=== PATIENT | male | born 1985 | race African-American/Black ===

== ENCOUNTER 2019-07-05 15:33 | Outpatient (CLI) | payer OTHER, SELFPAY ==
[2019-07-05 16:02] LABS: Basophils Percent Auto 0.5 % (0.2-1.2); Eosinophils Percent Auto 0.9 % (0-4.4); Hematocrit 43.8 % (42.0-52.0); Hemoglobin 14.6 g/dL (14.0-18.0); Immature Granulocyte Absolute 0.01 K/mm3 (0.00-0.031); Immature Granulocyte Percent A 0.2 % (0-0.5); Lymphocytes Absolute Auto 1.29 K/mm3 (0.9-3.2); Lymphocytes Percent Auto 29.1 % (18.3-44.2); Mean Corpuscular HGB Conc 33.3 g/dl (32-36); Mean Corpuscular Hemoglobin 26.7 pg (26-34); Mean Corpuscular Volume 80.1 fl (80-100); Mean Platelet Volume 9.3 fl (7.4-10.4); Monocytes Absolute Auto 0.5 K/mm3 (0.1-0.6); Monocytes Percent Auto 11.9 % (2.6-8.5); Neutrophils Absolute Auto 2.6 K/mm3 (1.3-6.7); Neutrophils Percent Auto 57.4 % (45.5-73.1); Platelet Count Result 218 k/mm3 (150-375); Red Blood Count 5.47 M/mm3 (4.6-6.20); Red Cell Distribution Width 12.7 % (11.5-14.5); White Blood Count 4.4 K/mm3 (4.5-10.0)
[2019-07-05 16:53] LABS: Iron 96 ug/dL (49-181)
[2019-07-05 16:57] LABS: Alanine Aminotransferase 58 U/L (4-50); Albumin Level 4.7 g/dL (3.5-5.1); Alkaline Phosphatase 54 U/L (38-126); Aspartate Amino Transferase 35 U/L (17-59); Bilirubin,Total 0.7 mg/dL (0.2-1.3); Blood Urea Nitrogen 15 mg/dL (9-20); Calcium 9.4 mg/dL (8.4-10.2); Carbon Dioxide 25 mmol/L (22-30); Chloride 104 mmol/L (98-107); Estimated Glomerular Filt Rate > 60; Glucose 74 mg/dL (75-110); Potassium 4.7 mmol/L (3.4-5.0); Sodium 138 mmol/L (137-145)
[2019-07-05 17:02] LABS: Percent Iron Saturation 33 % (20-50)
== END 2019-07-05 15:34 | disposition home or self-care (01) ==
PROVIDERS: PCP Emergency Medicine; Visit Provider Internal Medicine Hematology & Oncology
DX: D72.819 Decreased white blood cell count, unspecified (principal)
CPT/HCPCS: 36415; 80053; 82607; 82728; 83540; 83550; 85025; 86038

== ENCOUNTER 2019-07-09 08:44 | Outpatient (CLI) | payer OTHER, SELFPAY ==
--- NOTE | ~2019-07-09 | US_ITS ---
EXAMINATION: US abdomen complete DATE: 07/09/2019 09:18 INDICATION: Leukopenia TECHNIQUE: Multiple grayscale and Doppler ultrasound images of the abdomen were obtained. COMPARISON: None available FINDINGS: The head and and body of the pancreas are normal. The pancreatic tail is obscured by bowel gas. The liver is normal with normal echogenicity and echotexture. No surface nodularity. Normal hepa topetal flow in the main portal vein. The gallbladder is normal with no abnormal wall thickening, per icholecystic fluid or stones. The normal common bile duct measures 3 mm. There was no sonographic Mur phy sign. The visualized portions of the aorta and inferior vena cava are normal. The right kidney measures 10.9 x 4.5 x 5.3 cm. The left kidney measures 10.3 x 7.1 x 5.4 cm. The kidn eys demonstrate normal parenchymal echogenicity. There is no hydronephrosis. The spleen is normal in appearance and measures 10.6 cm. IMPRESSION: 1. No sonographic correlate for the patient's symptoms. Reviewed, dictated and finalized at location A.
== END 2019-07-09 08:45 | disposition home or self-care (01) ==
LOC: ANHIMG 08:47
PROVIDERS: PCP Emergency Medicine; Visit Provider Internal Medicine Hematology & Oncology
DX: D72.819 Decreased white blood cell count, unspecified (principal)
CPT/HCPCS: 76700

== ENCOUNTER → 2019-09-10 14:55 | Outpatient (CLI) | payer OTHER, SELFPAY ==
--- NOTE | ~2019-09-10 | XR_ITS ---
EXAMINATION: XR chest 2V EXAM DATE: 09/10/2019 15:17 INDICATION: Cough. TECHNIQUE: Frontal and lateral projections of the chest obtained and reviewed. There is no prior lucila dy for comparison. FINDINGS: The lungs are clear. There are no pleural effusions. The cardiomediastinal silhouette is within normal limits. There is no pneumothorax suspected. The bones and soft tissues are unremarkab le. IMPRESSION: Normal chest x-ray exam. Reviewed, dictated and finalized at location A. IMPRESSION: Normal chest x-ray exam.
== END ==
PROVIDERS: PCP Emergency Medicine; Visit Provider Emergency Medicine
DX: R05 Cough (principal)
CPT/HCPCS: 71046

== ENCOUNTER 2020-01-23 13:20 | Outpatient (CLI) | payer OTHER, SELFPAY ==
[2020-01-23 13:51] LABS: Basophils Percent Auto 0.5 % (0.2-1.2); Hematocrit 43.7 % (42.0-52.0); Hemoglobin 14.6 g/dL (14.0-18.0); Immature Granulocyte Absolute 0.02 K/mm3 (0.00-0.031); Immature Granulocyte Percent A 0.5 % (0-0.5); Lymphocytes Absolute Auto 1.13 K/mm3 (0.9-3.2); Lymphocytes Percent Auto 29.5 % (18.3-44.2); Mean Corpuscular HGB Conc 33.4 g/dl (32-36); Mean Corpuscular Volume 80.8 fl (80-100); Mean Platelet Volume 9.2 fl (7.4-10.4); Monocytes Absolute Auto 0.4 K/mm3 (0.1-0.6); Monocytes Percent Auto 9.9 % (2.6-8.5); Neutrophils Absolute Auto 2.2 K/mm3 (1.3-6.7); Neutrophils Percent Auto 58.6 % (45.5-73.1); Platelet Count Result 221 k/mm3 (150-375); Red Blood Count 5.41 M/mm3 (4.6-6.20); Red Cell Distribution Width 13.1 % (11.5-14.5); White Blood Count 3.8 K/mm3 (4.5-10.0)
[2020-01-23 13:55] LABS: Blood Urea Nitrogen 17 mg/dL (8-26); Carbon Dioxide 32 mmol/L (22-30); Chloride 100 mmol/L (98-109); Estimated Glomerular Filt Rate > 60; Glucose 94 mg/dL (70-105); Sodium 140 mmol/L (138-146)
[2020-01-23 17:00] LABS: Alanine Aminotransferase 46 U/L (4-50); Albumin Level 4.4 g/dL (3.5-5.1); Alkaline Phosphatase 57 U/L (38-126); Anion Gap 8 mmol/L (8-16); Aspartate Amino Transferase 33 U/L (17-59); Bilirubin,Total 0.7 mg/dL (0.2-1.3); Blood Urea Nitrogen 17 mg/dL (9-20); Calcium 9.9 mg/dL (8.4-10.2); Carbon Dioxide 31 mmol/L (22-30); Chloride 100 mmol/L (98-107); Estimated Glomerular Filt Rate > 60; Glucose 93 mg/dL (75-110); Potassium 4.2 mmol/L (3.4-5.0); Sodium 139 mmol/L (137-145)
== END 2020-01-23 13:21 | disposition home or self-care (01) ==
PROVIDERS: PCP Emergency Medicine; Visit Provider Internal Medicine Hematology & Oncology
DX: D72.819 Decreased white blood cell count, unspecified (principal)
CPT/HCPCS: 36415; 80048; 80053; 85025

== ENCOUNTER 2020-07-23 14:06 | Outpatient (CLI) | payer OTHER, SELFPAY ==
[2020-07-23 14:39] LABS: Basophils Percent Auto 0.7 % (0.2-1.2); Eosinophils Percent Auto 1.3 % (0-4.4); Hematocrit 44.2 % (42.0-52.0); Hemoglobin 14.9 g/dL (14.0-18.0); Immature Granulocyte Absolute 0.01 K/mm3 (0.00-0.031); Immature Granulocyte Percent A 0.3 % (0-0.5); Lymphocytes Absolute Auto 1.14 K/mm3 (0.9-3.2); Lymphocytes Percent Auto 37.7 % (18.3-44.2); Mean Corpuscular HGB Conc 33.7 g/dl (32-36); Mean Corpuscular Hemoglobin 26.8 pg (26-34); Mean Corpuscular Volume 79.4 fl (80-100); Monocytes Absolute Auto 0.3 K/mm3 (0.1-0.6); Monocytes Percent Auto 8.6 % (2.6-8.5); Neutrophils Absolute Auto 1.6 K/mm3 (1.3-6.7); Neutrophils Percent Auto 51.4 % (45.5-73.1); Platelet Count Result 206 k/mm3 (150-375); Red Blood Count 5.57 M/mm3 (4.6-6.20); Red Cell Distribution Width 12.4 % (11.5-14.5)
[2020-07-23 14:43] LABS: Blood Urea Nitrogen 18 mg/dL (8-26); Carbon Dioxide 26 mmol/L (22-30); Chloride 101 mmol/L (98-109); Estimated Glomerular Filt Rate > 60; Glucose 114 mg/dL (70-105); Potassium 4.2 mmol/L (3.5-4.9); Sodium 140 mmol/L (138-146)
[2020-07-23 14:44] LABS: Atypical Lymphocytes Present; Platelet Estimate Adequate (Adequate)
[2020-07-23 17:25] LABS: Alanine Aminotransferase 43 U/L (4-50); Albumin Level 4.6 g/dL (3.5-5.1); Alkaline Phosphatase 55 U/L (38-126); Anion Gap 10 mmol/L (8-16); Aspartate Amino Transferase 32 U/L (17-59); Bilirubin,Total 0.5 mg/dL (0.2-1.3); Blood Urea Nitrogen 17 mg/dL (9-20); Calcium 9.6 mg/dL (8.4-10.2); Carbon Dioxide 25 mmol/L (22-30); Chloride 104 mmol/L (98-107); Estimated Glomerular Filt Rate > 60; Glucose 109 mg/dL (75-110); Potassium 4.6 mmol/L (3.4-5.0); Sodium 139 mmol/L (137-145)
== END 2020-07-23 14:07 | disposition home or self-care (01) ==
LOC: ANHLAB 14:29
PROVIDERS: PCP Emergency Medicine; Visit Provider Internal Medicine Hematology & Oncology
DX: D72.819 Decreased white blood cell count, unspecified (principal)
CPT/HCPCS: 36415; 80048; 80053; 85025

== ENCOUNTER 2020-07-24 10:13 | Emergency (ER) | payer OTHER, SELFPAY ==
[2020-07-24] VITALS (16 sets, daily range): BP systolic 117–157; BP diastolic 62–109; PULSE 58–78; RESP 12–30; TEMP 36.6; O2SAT 98–100
--- NOTE | ~2020-07-24 | XR_ITS ---
EXAMINATION: XR chest 2V DATE: 07/24/2020 11:49 INDICATION: Lightheadedness TECHNIQUE: PA and lateral views of the chest were obtained. COMPARISON: Chest radiograph dated 09/10/2019 FINDINGS: The lungs remain clear with no focal airspace opacities, pulmonary edema, pleural effusion or pneumot horax. The cardiomediastinal silhouette is normal. Visualized bones and soft tissues are unremarkable . IMPRESSION: 1. No acute cardiopulmonary disease. Reviewed, dictated and finalized at location A.
--- NOTE | 2020-07-24 10:27 | ECG_ITS ---
Measurements Intervals [employer] Rate: 76 P: 73 PA: 174 QRS: 64 QRSD: 94 T: 36 QT: 339 QTc: 383 Interpretive Statements SINUS RHYTHM POSSIBLE LEFT ATRIAL ENLARGEMENT BORDERLINE ECG Electronically Signed On 07-24-2020 15:53:34 CDT by Bean Ramirez D.O.
[2020-07-24 11:10] LABS: Basophils Percent Auto 0.4 % (0.2-1.2); Eosinophils Percent Auto 0.7 % (0-4.4); Hematocrit 45.9 % (42.0-52.0); Hemoglobin 15.6 g/dL (14.0-18.0); Immature Granulocyte Absolute 0.01 K/mm3 (0.00-0.031); Immature Granulocyte Percent A 0.4 % (0-0.5); Lymphocytes Absolute Auto 0.83 K/mm3 (0.9-3.2); Lymphocytes Percent Auto 29.4 % (18.3-44.2); Mean Corpuscular Volume 79.4 fl (80-100); Mean Platelet Volume 9.2 fl (7.4-10.4); Monocytes Absolute Auto 0.3 K/mm3 (0.1-0.6); Neutrophils Absolute Auto 1.6 K/mm3 (1.3-6.7); Neutrophils Percent Auto 58.1 % (45.5-73.1); Platelet Count Result 201 k/mm3 (150-375); Red Blood Count 5.78 M/mm3 (4.6-6.20); Red Cell Distribution Width 12.6 % (11.5-14.5); White Blood Count 2.8 K/mm3 (4.5-10.0)
[2020-07-24 11:18] LABS: Anion Gap 7 mmol/L (8-16); Blood Urea Nitrogen 15 mg/dL (9-20); Calcium 9.4 mg/dL (8.4-10.2); Carbon Dioxide 31 mmol/L (22-30); Chloride 103 mmol/L (98-107); Estimated CRCL calculation 100 ml/min; Estimated Glomerular Filt Rate > 60; Glucose 104 mg/dL (75-110); Potassium 4.3 mmol/L (3.4-5.0); Sodium 141 mmol/L (137-145)
[2020-07-24 11:25] LABS: Partial Thromboplastin Time 26.3 SECONDS (22.3-36.8); Prothrombin Time 13.3 Seconds (11.1-14.7)
[2020-07-24 11:30] LABS: Troponin I < 0.012 ng/mL (0.000-0.034)
--- NOTE | 2020-07-24 12:38 | ED.DIZZY ---
HPI - Dizziness General Chief Complaint: Dizziness Stated Complaint: lightheaded Time Seen by Provider: 07/24/20 12:22 Source: patient and family Mode of arrival: ambulatory Limitations: no limitations History of Present Illness HPI Narrative: Patient is a 35-year-old male healthy male who presents for evaluation of palpitations and intermittent dizziness. Patient states he has had these symptoms over the past 48 hours. They seem to come and go randomly, no specific pattern to the onset. Patient states he was having palpitations earlier this morning while he was at work. 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 He was doing some heavy lifting when this occurred. No significant diaphoresis or chest pain. He reports only palpitations and a feeling of lightheadedness. No jaw pain, neck pain or back pain. Patient denies any current symptoms in the room. He states he is not currently dizzy. He states that the dizziness is noticed, it lasts only for a few for short seconds before resolving on its own. Movement does seem to make the dizziness worse. No nausea or vomiting. No focal weakness or numbness. No headache or vision changes. Related Data Home Medications Medication Instructions Recorded Confirmed amlodipine 07/24/20 amlodipine 07/24/20 simvastatin mg 07/24/20 Allergies Allergy/AdvReac Type Severity Reaction Status Date / Time No Known Allergies Allergy Verified 07/24/20 11:48 Review of Systems Review of Systems: Narrative: CONSTITUTIONAL: Denies fever, chills, or sweats. EYES: Denies visual changes, redness, or discharge. ENT: Denies rhinorrhea, congestion, sore throat, or otalgia. CARDIOVASCULAR: Denies current chest pain, palpitations, or edema. RESPIRATORY: Denies cough or dyspnea. GASTROINTESTINAL: Denies abdominal pain, nausea, vomiting, or diarrhea. GENITOURINARY: Denies dysuria or hematuria. SKIN: Denies rash or itching. MUSCULOSKELETAL: Denies back pain, joint pain, or myalgia. NEUROLOGIC: Denies headache, numbness, or weakness. Reports intermittent dizziness. Denies dizziness currently. [facility] Social History Social History (Updated 07/24/20 @ 13:46 by Caryn Chao MD) Smoking status: Never smoker Alcohol intake: never Substance use: never Living arrangements: with family Gender identity (if verbalized by the patient): Male Exam Narrative: Exam Narrative: GENERAL: Awake, alert, conversant HEAD: Normocephalic, atraumatic. EYES: PERRLA and EOMI. ENT: Nares clear, no rhinorrhea or epistaxis. Mucous membranes moist. Right tympanic membrane cannot be visualized secondary to cerumen occlusion. No impaction. Left tympanic membrane cerumen present, no edema, erythema or bulging of the tympanic membrane. NECK: Supple. CHEST: No respiratory distress, breathing even and non labored HEART: Regular rate, sinus rhythm ABDOMEN:Non distended, non tender EXTREMITIES: Normal range of motion. No edema. SKIN: Warm, dry, no rash. NEURO:No focal deficits. Alert and oriented x3. Finger to nose intact bilaterally. EOMs intact without nystagmus. No facial droop/asymmetry noted bilaterally. Grimace intact. Intact sensation in face. Hearing intact bilaterally. Shoulder shrug intact. Strength 5/5 bilateral upper extremities. Strength 5/5 bilateral lower extremities. Reflexes 2+ patellar. Heel to benavides intact bilaterally. Ambulatory with a narrow base, steady gait, no ataxia. Course Vital Signs Vital signs: Vital Signs Temperature 36.6 C 07/24/20 10:24 Pulse Rate 77 07/24/20 10:24 Respiratory Rate 18 07/24/20 10:24 Blood Pressure 148/97 H 07/24/20 10:24 Pulse Oximetry 99 07/24/20 10:24 Temperature 36.6 C 07/24/20 10:24 Pulse Rate 58 L 07/24/20 14:30 Respiratory Rate 19 07/24/20 14:30 Blood Pressure 120/67 07/24/20 14:30 Pulse Oximetry 99 07/24/20 14:30 MDM - Dizziness MDM Narrative Medical decision making narrative: The patient
[2020-07-24] MEDS: MECLIZINE HCL 25 MG TABLET PO (12:58)
[2020-07-24 14:12] LABS: Troponin I < 0.012 ng/mL (0.000-0.034)
== END 2020-07-24 15:01 | disposition home or self-care (01) ==
PROVIDERS: Emergency Provider Emergency Medicine; PCP Emergency Medicine
DX: R00.2 Palpitations (principal); H81.13 Benign paroxysmal vertigo, bilateral; R94.31 Abnormal electrocardiogram [ECG] [EKG]
CPT/HCPCS: 36415; 71046; 80048; 84484; 85025; 85610; 85730; 93005; 99284; A9270

== ENCOUNTER 2020-08-05 21:12 | Emergency (ER) | payer OTHER, SELFPAY ==
--- NOTE | ~2020-08-05 | CT_ITS ---
EXAMINATION: CT brain wo con DATE: 08/05/2020 23:47 INDICATION: Dizziness TECHNIQUE: Computed tomography (CT) of the head was performed without intravenous contrast. The mA wa s adjusted according to patient size. Iterative reconstruction technique was employed. Exam dose: 60 5.33 mGy-cm total exam DLP. COMPARISON: 05/12/2004 CT brain FINDINGS: No intracranial mass lesion or hemorrhage or cerebrovascular accident. No midline shift or mass effect. Normal ventricular size. Normal peck-white matter differentiation. Bilateral carotid siphon internal carotid artery calcifications are noted. Included paranasal sinuses and mastoid air cells are unremarkable. No fracture or bone destruction of the skull. No subdural or epidural hematoma. IMPRESSION: Cerebral atherosclerosis No acute intracranial finding Reviewed, dictated and finalized at Location A. Reviewed, dictated and finalized at location A.
--- NOTE | ~2020-08-05 | XR_ITS ---
XR chest 2V DATE: 08/05/2020 21:46 INDICATION: Chest tightness since yesterday. Nausea. TECHNIQUE: AP and lateral views COMPARISON: 07/24/2020 PA and lateral chest FINDINGS: Normal heart size. No hilar or mediastinal enlargement. No pulmonary infiltrate or consolid ation, pleural effusion or pulmonary vascular congestion or pneumothorax. IMPRESSION: Negative Reviewed, dictated and finalized at location A. IMPRESSION: Negative
[2020-08-05 21:16] VITALS: BP 162/83; PULSE 96; RESP 18; TEMP 37; O2SAT 100
--- NOTE | 2020-08-05 21:24 | ECG_ITS ---
Measurements Intervals [place] Rate: 97 P: 63 IN: 176 QRS: 67 QRSD: 94 T: 11 QT: 319 QTc: 406 Interpretive Statements SINUS RHYTHM POSSIBLE LEFT ATRIAL ENLARGEMENT DELAYED PRECORDIAL R/S TRANSITION BORDERLINE ST-T WAVE ABNORMALITY- INFERIOR LEADS BORDERLINE ECG Electronically Signed On 08-06-2020 5:50:20 CDT by Bean Ramirez D.O.
[2020-08-05 21:41] LABS: Basophils Percent Auto 0.2 % (0.2-1.2); Eosinophils Absolute Auto 0.1 K/mm3 (0-0.3); Eosinophils Percent Auto 1.2 % (0-4.4); Hematocrit 46.7 % (42.0-52.0); Hemoglobin 15.2 g/dL (14.0-18.0); Immature Granulocyte Absolute 0.02 K/mm3 (0.00-0.031); Immature Granulocyte Percent A 0.5 % (0-0.5); Lymphocytes Absolute Auto 1.54 K/mm3 (0.9-3.2); Lymphocytes Percent Auto 37.3 % (18.3-44.2); Mean Corpuscular HGB Conc 32.5 g/dl (32-36); Mean Corpuscular Hemoglobin 26.6 pg (26-34); Mean Corpuscular Volume 81.8 fl (80-100); Mean Platelet Volume 9.1 fl (7.4-10.4); Monocytes Absolute Auto 0.4 K/mm3 (0.1-0.6); Monocytes Percent Auto 9.2 % (2.6-8.5); Neutrophils Absolute Auto 2.1 K/mm3 (1.3-6.7); Neutrophils Percent Auto 51.6 % (45.5-73.1); Platelet Count Result 205 k/mm3 (150-375); Red Blood Count 5.71 M/mm3 (4.6-6.20); Red Cell Distribution Width 12.5 % (11.5-14.5); White Blood Count 4.1 K/mm3 (4.5-10.0)
--- NOTE | 2020-08-05 21:44 | PC.NURSE ---
call brother [phone] shelli
[2020-08-05 21:50] LABS: Prothrombin Time 13.4 Seconds (11.1-14.7)
[2020-08-05 21:51] LABS: Partial Thromboplastin Time 24.3 SECONDS (22.3-36.8)
[2020-08-05 21:53] LABS: Anion Gap 9 mmol/L (8-16); Blood Urea Nitrogen 15 mg/dL (9-20); Calcium 9.5 mg/dL (8.4-10.2); Carbon Dioxide 29 mmol/L (22-30); Chloride 103 mmol/L (98-107); Estimated CRCL calculation 84 ml/min; Estimated Glomerular Filt Rate > 60; Glucose 100 mg/dL (75-110); Potassium 4.3 mmol/L (3.4-5.0); Sodium 141 mmol/L (137-145)
[2020-08-05 22:05] LABS: Troponin I < 0.012 ng/mL (0.000-0.034)
[2020-08-05 22:39] VITALS: BP 130/76; PULSE 73; RESP 16; O2SAT 98
[2020-08-05] MEDS: ASPIRIN 81 MG CHEWABLE TABLET 324 MG PO (22:44)
[2020-08-05 22:53] VITALS: PULSE 71
--- NOTE | 2020-08-05 23:50 | PC.NURSE ---
pt to and from radiology via cart and is now back in room resting on cart in its lowest position with call button and personal items within reach. is present at bedside.
[2020-08-05] MEDS: SODIUM CHLORIDE 0.9% IV 1,000 ML 999 ML IV CONT (23:53)
[2020-08-05] MEDS: MECLIZINE HCL 25 MG TABLET PO (23:53)
--- NOTE | 2020-08-05 23:58 | PC.NURSE ---
Pt presents to ED with complaint of chest tightness that has been persistent since yesterday. Pt states he was seen here last for same. Pain rated 4/10 and sharp at this time. Complains of nausea and denies emesis. Pt noted to be alert and oriented x4 and able to walk into ED without difficulty. Pt adds that he has been experiencing dizziness as well. Pt remains alert and oriented x4 and in no obvious distress. Vitals are stable and pt advised to press call button for assistance.
--- NOTE | 2020-08-06 00:14 | ED.GENADULT ---
HPI - General Adult General Chief complaint: Chest Pain Stated complaint: dizziness, chest pain Time Seen by Provider: 08/05/20 23:09 History of Present Illness HPI narrative: Patient 35-year-old gentleman who presents the emergency department with chief complaint of chest discomfort and dizziness. The patient reports he was seen in the emergency department fairly recently and diagnosed with vertigo. The patient states he seen his primary care physician and has a referral to otolaryngology patient states today he felt lightheaded and felt as though his head was spinning. Patient states this was not improved by anything and just spontaneously improved. Patient states he had some tightness in his chest when this is going on and reports has had some palpitations. The patient denies focal neurological deficit Related Data Home Medications Medication Instructions Recorded Confirmed amlodipine 07/24/20 amlodipine 07/24/20 simvastatin mg 07/24/20 Allergies Allergy/AdvReac Type Severity Reaction Status Date / Time No Known Allergies Allergy Verified 07/24/20 11:48 Review of Systems Review of Systems: Narrative: A 10 system review of systems was completed on the patient and is negative except for what is stated in the HPI. Nursing and ancillary documentation was reviewed. [facility] Social History Social History Smoking status: Never smoker Alcohol intake: never Substance use: never Gender identity (if verbalized by the patient): Male Exam Narrative: Exam Narrative: GENERAL: Well-appearing, well-nourished, and in no acute distress. HEAD: Normocephalic, atraumatic. EYES: PERRLA and EOMI. ENT: Nares clear, no rhinorrhea or epistaxis. Mucous membranes moist. NECK: Supple. CHEST: Clear to auscultation. No respiratory distress. HEART: Regular rate and rhythm. No murmur heard. Normal peripheral pulses. ABDOMEN: Soft, nontender, nondistended, normal active bowel sounds. EXTREMITIES: Normal range of motion. No edema. SKIN: Warm, dry, no rash. NEURO: No focal deficits. Alert and oriented x3. PSYCH: Normal mood and affect. Course Vital Signs Vital signs: Vital Signs Temperature 37.0 C 08/05/20 21:16 Pulse Rate 96 08/05/20 21:16 Respiratory Rate 18 08/05/20 21:16 Blood Pressure 162/83 H 08/05/20 21:16 Pulse Oximetry 100 08/05/20 21:16 Temperature 37.0 C 08/05/20 21:16 Pulse Rate 60 08/06/20 00:35 Respiratory Rate 18 08/06/20 00:35 Blood Pressure 127/77 08/06/20 00:35 Pulse Oximetry 99 08/06/20 00:35 Medical Decision Making Vital Signs Vital Signs: Vital Signs Temperature 37.0 C 08/05/20 21:16 Pulse Rate 96 08/05/20 21:16 Respiratory Rate 18 08/05/20 21:16 Blood Pressure 162/83 H 08/05/20 21:16 Pulse Oximetry 100 08/05/20 21:16 Temperature 37.0 C 08/05/20 21:16 Pulse Rate 60 08/06/20 00:35 Respiratory Rate 18 08/06/20 00:35 Blood Pressure 127/77 08/06/20 00:35 Pulse Oximetry 99 08/06/20 00:35 Lab Data Result diagrams: 08/05/20 21:28 08/05/20 21:28 Labs: Lab Results 08/05/20 08/05/20 08/05/20 Range/Units 21:28 21:28 21:28 WBC 4.1 L (4.5-10.0) K/mm3 RBC 5.71 (4.6-6.20) M/mm3 Hgb 15.2 (14.0-18.0) g/dL Hct 46.7 (42.0-52.0) % MCV 81.8 (80-100) fl MCH 26.6 (26-34) pg MCHC 32.5 (32-36) g/dl RDW 12.5 (11.5-14.5) % Plt Count 205 (150-375) k/mm3 MPV 9.1 (7.4-10.4) fl Immature Gran % (Auto) 0.5 (0-0.5) % Neut % (Auto) 51.6 (45.5-73.1) % Lymph % (Auto) 37.3 (18.3-44.2) % [place] % (Auto) 9.2 H (2.6-8.5) % Eos % (Auto) 1.2 (0-4.4) % Baso % (Auto) 0.2 (0.2-1.2) % Lymph # (Auto) 1.54 (0.9-3.2) K/mm3 [place] # (Auto) 0.4 (0.1-0.6) K/mm3 Eos # (Auto) 0.1 (0-0.3) K/mm3 Baso # (Auto) 0.0 (0.0-0.1) K/mm3 Abs Immat Gran (auto) 0.02 (0.00-0.03
[2020-08-06 00:35] VITALS: BP 127/77; PULSE 60; RESP 18; O2SAT 99
--- NOTE | 2020-08-06 00:37 | PC.NURSE ---
Pt states he feels a little better and dizziness has improved but is still present. Pt denies nausea and emesis. is present at bedside and vitals remain stable and pt in no obvious distress.
--- NOTE | 2020-08-06 01:25 | PC.NURSE ---
Pt ambulated in [place] and walked around the nurses station with standby assist from nurse. Pt tolerated walk well and denies chest pain, sob, nausea and dizziness. Pt now back in room resting on cart in its lowest position with call button and personal items within reach. Advised to press call button for assistance.
[2020-08-06 02:13] LABS: Troponin I < 0.012 ng/mL (0.000-0.034)
--- NOTE | 2020-08-06 02:17 | PC.NURSE ---
EDMD presented to bedside to update pt and on poc. All questions and concerns addressed.
--- NOTE | 2020-08-06 02:51 | PC.NURSE ---
EDMD presented to bedside to update pt and on poc. All questions and concerns addressed.
[2020-08-06 03:01] VITALS: BP 132/75; PULSE 77; RESP 20; TEMP 37.1; O2SAT 97
[2020-08-06 03:03] VITALS: BP 132/75; PULSE 77; RESP 20; TEMP 37.1; O2SAT 97
== END 2020-08-06 03:06 | disposition home or self-care (01) ==
PROVIDERS: Emergency Medicine; Emergency Provider Emergency Medicine; PCP Emergency Medicine
DX: R07.89 Other chest pain (principal); R42 Dizziness and giddiness; R94.31 Abnormal electrocardiogram [ECG] [EKG]
CPT/HCPCS: 36415; 70450; 71046; 80048; 84484; 85025; 85610; 85730; 93005; 96360; 99284; A9270; J7030

== ENCOUNTER 2020-08-26 07:53 | Outpatient (CLI) | payer OTHER, SELFPAY | END 2020-08-26 07:54 | disposition home or self-care (01) | LOC: ANHAUDIO 07:55 | PROVIDERS: PCP Emergency Medicine; Visit Provider Nurse Practitioner Family | DX: H69.93 Unspecified Eustachian tube disorder, bilateral (principal); R42 Dizziness and giddiness; H90.42 Sensorineural hearing loss, unilateral, left ear, with unrestricted hearing on the contralateral side | CPT/HCPCS: 92537; 92540; 92546; 92557; 92567 ==

== ENCOUNTER 2021-07-01 02:59 | Emergency (ER) | payer OTHER, SELFPAY ==
--- NOTE | ~2021-07-01 | XR_ITS ---
EXAMINATION: XR chest 2V DATE: 07/01/2021 03:41 INDICATION: Chest pain TECHNIQUE: PA and lateral views of the chest are obtained. COMPARISON: 08/05/2020 FINDINGS: The lungs are free of acute opacities. There is no pleural effusion or pneumothorax. The ca rdiomediastinal silhouette is normal. The visualized bones and soft tissues are unremarkable. IMPRESSION: 1. No acute cardiopulmonary abnormality. Reviewed, dictated and finalized at location A.
[2021-07-01 03:01] VITALS: BP 153/92; PULSE 67; RESP 16; TEMP 36.7; O2SAT 100
--- NOTE | 2021-07-01 03:11 | ECG_ITS ---
Measurements Intervals [place] Rate: 68 P: 71 DC: 211 QRS: 66 QRSD: 97 T: 35 QT: 364 QTc: 389 Interpretive Statements SINUS RHYTHM WITH SINUS ARRHYTHMIA WITH FIRST DEGREE AV BLOCK POSSIBLE LEFT ATRIAL ENLARGEMENT DELAYED PRECORDIAL R/S TRANSITION NONSPECIFIC ST ELEVATION IN DIFFUSE LEADS BASELINE ARTIFACT- I, II, AVR, AVL, V1 ABNORMAL ECG Electronically Signed On 07-01-2021 6:49:04 CDT by Bean Ramirez D.O.
[2021-07-01 03:17] VITALS: O2SAT 98
--- NOTE | 2021-07-01 03:17 | ED.GENADULT ---
HPI - General Adult General Chief complaint: Chest Pain Stated complaint: Chest discomfort Time Seen by Provider: 07/01/21 03:06 Source: patient and RN notes reviewed Mode of arrival: ambulatory Limitations: no limitations History of Present Illness HPI narrative: 36-year-old male with no significant past medical history presenting to the emergency department for evaluation of left-sided and epigastric chest pain/pressure. Patient states the symptoms have been intermittent over the last 3 days. Patient states it does seem to bother him more at nighttime. Patient does exercise frequently and denies any chest pain or exertional shortness of breath. Patient does report a history of gastric reflux. Patient does have a prior history of high blood pressure but states that it had improved. Patient states he does have close follow-up with his primary care physician. Patient denies any high cholesterol or diabetes Related Data Home Medications Medication Instructions Recorded Confirmed amlodipine 07/24/20 amlodipine 07/24/20 simvastatin mg 07/24/20 Allergies Allergy/AdvReac Type Severity Reaction Status Date / Time No Known Allergies Allergy Verified 07/01/21 03:05 Review of Systems Review of Systems: CONSTITUTIONAL: Denies fever, chills, or sweats. EYES: Denies visual changes, redness, or discharge. ENT: Denies rhinorrhea, congestion, sore throat, or otalgia. CARDIOVASCULAR: See HPI RESPIRATORY: Denies cough or dyspnea. GASTROINTESTINAL: See HPI GENITOURINARY: Denies dysuria or hematuria. SKIN: Denies rash or itching. MUSCULOSKELETAL: Denies back pain, joint pain, or myalgia. NEUROLOGIC: Denies headache, numbness, or weakness. [facility] Social History Social History Smoking status: Never smoker Alcohol intake: never Substance use: never Gender identity (if verbalized by the patient): Male Exam Narrative: APPEARANCE: Well appearing, no pain, no distress, well-nourished. HEAD: normocephalic, atraumatic. EYES: PERRLA/EOMI, conjunctivae clear. NOSE: Normal no drainage THROAT: Pharynx clear, no exudate. NECK: Supple. No adenopathy, no masses. RESPIRATORY: Airway patent, respirations nonlabored. Clear to auscultation bilaterally, no rales, rhonchi, wheezing. CARDIOVASCULAR: Regular rate and rhythm without murmurs rubs or gallops. No reproducible chest wall tenderness to palpation. ABDOMINAL: Mild epigastric tenderness to palpation. Normal bowel sounds. Otherwise benign nonsurgical abdomen. MUSCULOSKELETAL: Moves all extremities. Strength/ROM intact, No edema, No calf tenderness. NEURO: Alert. Cranial nerves II through XII intact. Grossly intact SKIN: Warm, dry. Normal Color PSYCHIATRIC: Normal affect/mood. Course Course Emergency Course: Patient states that symptoms were resolved with a GI cocktail. Patient did have negative serial troponins. Chest x-ray showed no acute cardiopulmonary abnormality. Labs otherwise normal. Patient is being treated for gastritis was also encouraged to have close follow-up with his primary care physician for additional outpatient cardiac testing. Vital Signs Vital signs: Vital Signs Temperature 98.1 F 07/01/21 03:01 Pulse Rate 67 07/01/21 03:01 Respiratory Rate 16 07/01/21 03:01 Blood Pressure 153/92 H 07/01/21 03:01 Pulse Oximetry 100 07/01/21 03:01 Temperature 98.1 F 07/01/21 03:01 Pulse Rate 82 07/01/21 07:08 Respiratory Rate 18 07/01/21 07:08 Blood Pressure 130/82 07/01/21 07:08 Pulse Oximetry 100 07/01/21 07:08 Medical Decision Making Vital Signs Vital Signs: Vital Signs Temperature 98.1 F 07/01/21 03:01 Pulse Rate 67 07/01/21 03:01 Respiratory Rate 16 07/01/21 03:01 Blood Pressure 153/92 H 07/01/21 03:01 Pulse Oximetry 100 07/01/21 03:01 Temperature 98.1 F 07/01/21 03:01 Pulse Rate 82 07/01/21 07:08 Respiratory Rate 18 07/01/21
[2021-07-01] MEDS: BELLADONNA ALK/PHENOB ELIX 10 ML, MAG HYDROX/ALUMINUM HYD/SIMETH 30 ML, LIDOCAINE HCL 2... PO (03:28)
[2021-07-01 03:41] LABS: Basophils Percent Auto 0.4 % (0.2-1.2); Eosinophils Percent Auto 0.9 % (0-4.4); Hematocrit 45.3 % (42.0-52.0); Hemoglobin 14.9 g/dL (14.0-18.0); Immature Granulocyte Absolute 0.01 K/mm3 (0.00-0.031); Immature Granulocyte Percent A 0.2 % (0-0.5); Lymphocytes Absolute Auto 1.38 K/mm3 (0.9-3.2); Lymphocytes Percent Auto 30.8 % (18.3-44.2); Mean Corpuscular HGB Conc 32.9 g/dl (32-36); Mean Corpuscular Volume 82.2 fl (80-100); Mean Platelet Volume 9.3 fl (7.4-10.4); Monocytes Absolute Auto 0.5 K/mm3 (0.1-0.6); Monocytes Percent Auto 12.1 % (2.6-8.5); Neutrophils Absolute Auto 2.5 K/mm3 (1.3-6.7); Neutrophils Percent Auto 55.6 % (45.5-73.1); Platelet Count Result 211 k/mm3 (150-375); Red Blood Count 5.51 M/mm3 (4.6-6.20); Red Cell Distribution Width 12.9 % (11.5-14.5); White Blood Count 4.5 K/mm3 (4.5-10.0)
[2021-07-01 03:51] LABS: Alanine Aminotransferase 38 U/L (6-50); Albumin Level 4.9 g/dL (3.5-5.1); Alkaline Phosphatase 56 U/L (38-126); Anion Gap 11 mmol/L (8-16); Aspartate Amino Transferase 38 U/L (17-59); Bilirubin,Total 0.7 mg/dL (0.2-1.3); Blood Urea Nitrogen 19 mg/dL (9-20); Carbon Dioxide 28 mmol/L (22-30); Chloride 101 mmol/L (98-107); Estimated CRCL calculation 91 ml/min; Estimated Glomerular Filt Rate > 60; Glucose 116 mg/dL (65-110); Lipase 190 U/L (23-300); Potassium 3.5 mmol/L (3.4-5.0); Sodium 140 mmol/L (137-145)
[2021-07-01 03:52] LABS: Partial Thromboplastin Time 28.3 SECONDS (22.3-36.8); Prothrombin Time 13.2 Seconds (11.1-14.7)
[2021-07-01 04:03] LABS: Troponin I < 0.012 ng/mL (0.000-0.034)
[2021-07-01 04:28] VITALS: BP 135/74; PULSE 61; RESP 16; O2SAT 100
--- NOTE | 2021-07-01 04:30 | PC.NURSE ---
Patient states, I feel a lot better after that GI medicine you gave me
[2021-07-01 06:33] LABS: Troponin I < 0.012 ng/mL (0.000-0.034)
[2021-07-01 07:08] VITALS: BP 130/82; PULSE 82; RESP 18; O2SAT 100
== END 2021-07-01 07:11 | disposition home or self-care (01) ==
PROVIDERS: Emergency Provider Emergency Medicine; PCP Emergency Medicine
DX: R07.89 Other chest pain (principal); R10.13 Epigastric pain; I44.0 Atrioventricular block, first degree; R94.31 Abnormal electrocardiogram [ECG] [EKG]
CPT/HCPCS: 36415; 71046; 80053; 83690; 84484; 85025; 85610; 85730; 93005; 99284; A9270

== ENCOUNTER 2021-07-22 15:53 | Outpatient (CLI) | payer OTHER, SELFPAY ==
[2021-07-22 16:07] LABS: Basophils Percent Auto 0.7 % (0.2-1.2); Hematocrit 44.4 % (42.0-52.0); Hemoglobin 14.6 g/dL (14.0-18.0); Immature Granulocyte Absolute 0.01 K/mm3 (0.00-0.031); Immature Granulocyte Percent A 0.3 % (0-0.5); Lymphocytes Percent Auto 36.2 % (18.3-44.2); Mean Corpuscular HGB Conc 32.9 g/dl (32-36); Mean Corpuscular Hemoglobin 26.5 pg (26-34); Mean Corpuscular Volume 80.7 fl (80-100); Mean Platelet Volume 9.1 fl (7.4-10.4); Monocytes Absolute Auto 0.3 K/mm3 (0.1-0.6); Monocytes Percent Auto 10.2 % (2.6-8.5); Neutrophils Absolute Auto 1.6 K/mm3 (1.3-6.7); Neutrophils Percent Auto 51.6 % (45.5-73.1); Platelet Count Result 248 k/mm3 (150-375)
[2021-07-22 16:42] LABS: Alanine Aminotransferase 37 U/L (6-50); Albumin Level 4.6 g/dL (3.5-5.1); Alkaline Phosphatase 58 U/L (38-126); Anion Gap 9 mmol/L (8-16); Aspartate Amino Transferase 35 U/L (17-59); Bilirubin,Total 0.6 mg/dL (0.2-1.3); Blood Urea Nitrogen 15 mg/dL (9-20); Calcium 9.1 mg/dL (8.4-10.2); Carbon Dioxide 26 mmol/L (22-30); Chloride 104 mmol/L (98-107); Estimated Glomerular Filt Rate > 60; Glucose 98 mg/dL (65-110); Potassium 3.8 mmol/L (3.4-5.0); Sodium 139 mmol/L (137-145)
== END 2021-07-22 15:54 | disposition home or self-care (01) ==
LOC: ANHLAB 15:54
PROVIDERS: PCP Emergency Medicine; Visit Provider Internal Medicine Hematology & Oncology
DX: D72.819 Decreased white blood cell count, unspecified (principal)
CPT/HCPCS: 36415; 80053; 85025

== ENCOUNTER 2021-12-09 16:47 | Emergency (ER) | payer OTHER, SELFPAY ==
[2021-12-09 16:56] VITALS: BP 150/88; PULSE 82; RESP 16; TEMP 37.3; O2SAT 99
--- NOTE | 2021-12-09 17:10 | ED.CHESTPAIN ---
HPI - Chest Pain General Chief Complaint: Chest Pain Stated Complaint: chest pain and discomfort Time Seen by Provider: 12/09/21 17:10 Source: patient Mode of arrival: ambulatory Limitations: no limitations History of Present Illness HPI narrative: 36 y/o male presented for c/o right pectoral muscle twitching intermittently for 3 days. Denies injury. 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 Denies any other location of muscle twitching. He states he has had several cardiac tests due to intermittent left sided chest pain, and has been told his 'heart looks good.' He continues to f/u with cardiology and is scheduled with ortho. Denies left sided chest pain, pressure, palpitations, shortness of breath, dizziness, nausea or vomiting. Not taking anything for symptoms. He has notified his PCP of this complaint and was advised to get evaluated with labwork. Hx HTN, compliant with amlodipine. Related Data Home Medications Medication Instructions Recorded Confirmed amlodipine 2.5 mg tablet 5 mg PO DAILY 07/24/20 12/09/21 simvastatin 20 mg tablet 20 mg PO DAILY 07/24/20 12/09/21 pantoprazole 20 mg tablet,delayed 20 mg PO DAILY 12/09/21 12/09/21 release Allergies Allergy/AdvReac Type Severity Reaction Status Date / Time No Known Allergies Allergy Verified 12/09/21 17:06 Review of Systems Review of Systems: CONSTITUTIONAL: Denies body aches, fever, chills, or sweats. EYES: Denies visual changes, redness, or discharge. ENT: Denies rhinorrhea, congestion, sore throat, or otalgia. CARDIOVASCULAR: Denies chest pain, palpitations, or edema. RESPIRATORY: Denies cough or dyspnea. GASTROINTESTINAL: Denies abdominal pain, nausea, vomiting, or diarrhea. GENITOURINARY: Denies dysuria or hematuria. SKIN: Denies rash, itching, or wounds. MUSCULOSKELETAL:Reports left pectoral twitching. Denies back pain, joint pain, or myalgia. NEUROLOGIC: Denies headache, numbness, tingling, or weakness. PSYCH: Denies depression or anxiety. All systems reviewed & are unremarkable except as noted in HPI and below PMFSH Social History Social History Smoking status: Never smoker Alcohol intake: never Substance use: never Gender identity (if verbalized by the patient): Male Comments At time of signature, I have reviewed and agree with nursing past medical, surgical, social and family history unless otherwise noted. Please see nursing chart for further information. There is no relevant family history pertinent to the presenting complaint Exam Narrative: GENERAL: Well-appearing, well-nourished, and in no acute distress. EYES: EOMI. No redness or drainage. Conjunctivae normal. ENT: Mucous membranes pink and moist. NECK: Normal AROM. Supple. CHEST: No respiratory distress. Clear to auscultation bilaterally. HEART: Regular rate and rhythm. No murmur appreciated. Normal peripheral pulses. ABDOMEN: Soft, nontender, nondistended, normal active bowel sounds. MUSCULOSKELETAL: Right sternal border tenderness with palpation, reports this is the site of 'twitching.' No bony tenderness. EXTREMITIES: Normal range of motion. No edema. SKIN: Warm, dry, no rash. Capillary refill normal. Normal skin turgor. NEURO: No focal deficits. Alert and oriented x3. Gait steady. PSYCH: Normal affect. Course Course Emergency Course: Patient is aware of diagnosis, understands and agrees to treatment plan. Anticipatory guidance given. Patient agrees to follow-up as directed and is aware of reasons to seek care at the emergency department. Portions of this record may have been created with voice recognition software Level of Care: Express Care Visit Vital Signs Vital signs: Vital Signs Temperature 99.1 F 12/09/21 16:56 Pulse Rate 82 12/09/21 16:56 Respiratory Rate 16 12/09/21 16:56 Blood Pressure 150/88 H 12/09/21 16:56 Pulse Oximetry 99 12/09/21 16:56
== END 2021-12-09 17:30 | disposition home or self-care (01) ==
PROVIDERS: Emergency Provider Nurse Practitioner Family; PCP Emergency Medicine
DX: M62.838 Other muscle spasm (principal); I10 Essential (primary) hypertension; E78.00 Pure hypercholesterolemia, unspecified
CPT/HCPCS: 99213; G0463

== ENCOUNTER 2021-12-16 16:18 | Outpatient (CLI) | payer OTHER, SELFPAY ==
--- NOTE | ~2021-12-16 | CT_ITS ---
EXAMINATION: CT diagnostic chest wo con DATE: 12/16/2021 16:46 INDICATION: Upper chest wall pain for months. TECHNIQUE: Computed tomography (CT) of the chest was performed without intravenous contrast. The dose -length product was 293.52 mGy-cm. Automated exposure control and iterative reconstruction technique were employed. COMPARISON: None FINDINGS: Heart size normal. No significant pleural or pericardial effusion. No significant vascular abnormality. No lymphadenopathy. The upper abdomen is unremarkable. No endobronchial lesions. No pneu mothorax. No focal airspace consolidations. No suspicious pulmonary nodules or masses. No focal lytic or sclerotic lesions are identified. No acute osseous abnormality. IMPRESSION: 1. No acute abnormality. No findings to explain patient's symptoms. Reviewed, dictated and finalized at location B.
--- NOTE | ~2021-12-16 | XR_ITS ---
XR shoulder LT min 2V 12/16/2021 16:41 Indication: Left lateral shoulder pain Procedure: 4 views left shoulder Comparison: No prior studies for comparison. Findings: No fracture, subluxation or dislocation. No significant soft tissue abnormality. No foreign bodies. Impression: 1: No significant bone or joint abnormality. Reviewed, dictated and finalized at location B. Impression: 1: No significant bone or joint abnormality.
== END 2021-12-16 16:19 | disposition home or self-care (01) ==
LOC: ANHIMG 16:22
PROVIDERS: PCP Emergency Medicine; Visit Provider Emergency Medicine
DX: R07.89 Other chest pain (principal); M25.512 Pain in left shoulder
CPT/HCPCS: 71250; 73030

== ENCOUNTER 2022-07-22 15:42 | Outpatient (CLI) | payer OTHER, SELFPAY ==
[2022-07-22 15:56] LABS: Basophils Percent Auto 0.4 % (0.2-1.2); Eosinophils Percent Auto 0.9 % (0-4.4); Hematocrit 44.8 % (42.0-52.0); Hemoglobin 15.2 g/dL (14.0-18.0); Immature Granulocyte Absolute 0.01 K/mm3 (0.00-0.031); Immature Granulocyte Percent A 0.2 % (0-0.5); Lymphocytes Absolute Auto 1.12 K/mm3 (0.9-3.2); Lymphocytes Percent Auto 24.9 % (18.3-44.2); Mean Corpuscular HGB Conc 33.9 g/dl (32-36); Mean Corpuscular Hemoglobin 27.2 pg (26-34); Mean Corpuscular Volume 80.1 fl (80-100); Mean Platelet Volume 9.1 fl (7.4-10.4); Monocytes Absolute Auto 0.5 K/mm3 (0.1-0.6); Neutrophils Absolute Auto 2.8 K/mm3 (1.3-6.7); Neutrophils Percent Auto 61.6 % (45.5-73.1); Platelet Count Result 206 k/mm3 (150-375); Red Blood Count 5.59 M/mm3 (4.6-6.20); Red Cell Distribution Width 12.7 % (11.5-14.5); White Blood Count 4.5 K/mm3 (4.5-10.0)
[2022-07-22 16:33] LABS: Alanine Aminotransferase 63 U/L (6-50); Albumin Level 4.7 g/dL (3.5-5.1); Alkaline Phosphatase 53 U/L (38-126); Anion Gap 6 mmol/L (8-16); Aspartate Amino Transferase 76 U/L (17-59); Bilirubin,Total 0.8 mg/dL (0.2-1.3); Blood Urea Nitrogen 16 mg/dL (9-20); Calcium 8.9 mg/dL (8.4-10.2); Carbon Dioxide 31 mmol/L (22-30); Chloride 101 mmol/L (98-107); Estimated Glomerular Filt Rate > 60; Glucose 88 mg/dL (65-110); Potassium 4.1 mmol/L (3.4-5.0); Sodium 138 mmol/L (137-145)
== END 2022-07-22 15:43 | disposition home or self-care (01) ==
PROVIDERS: PCP Emergency Medicine; Visit Provider Internal Medicine Hematology & Oncology
DX: D72.819 Decreased white blood cell count, unspecified (principal)
CPT/HCPCS: 36415; 80053; 85025

== ENCOUNTER 2022-07-24 23:48 | Emergency (ER) | payer OTHER, SELFPAY ==
--- NOTE | ~2022-07-24 | XR_ITS ---
Right foot Technique: AP and lateral views were obtained. Clinical History: Injury Findings: No acute fracture or dislocation is seen. Osseous alignment is anatomic. Joint spaces are p reserved without erosive or degenerative change. Soft tissues are unremarkable. Impression: Unremarkable right foot radiographs. Reviewed, dictated and finalized at [facility]. Impression: Unremarkable right foot radiographs.
--- NOTE | ~2022-07-24 | XR_ITS ---
Right ankle Technique: AP and lateral views were obtained. Clinical History: Injury Findings: No acute fracture or dislocation is seen. Osseous alignment is anatomic. Ankle mortise and other visualized joint spaces are preserved. Soft tissues are otherwise unremarkable. Impression: Unremarkable right ankle. Reviewed, dictated and finalized at location . Impression: Unremarkable right ankle.
[2022-07-24 23:50] VITALS: BP 143/75; PULSE 86; RESP 18; TEMP 36.6; O2SAT 97
--- NOTE | 2022-07-25 02:05 | ED.GENADULT ---
HPI - General Adult General Chief complaint: Extremity Injury, Lower Stated complaint: right foot injury Time Seen by Provider: 07/25/22 01:52 Source: patient Mode of arrival: ambulatory Limitations: no limitations History of Present Illness HPI narrative: This is a 37-year-old male presents to the ED with chief complaint of a right ankle injury occurring while playing basketball earlier tonight. Patient states that he was going to start running down the court and when he pushed off of his right foot he heard a loud pop and had immediate pain. He felt pain in the pop in the back of the leg and ankle. Denies any pain in the anterior ankle or the foot. Denies any further site of pain or injury. Denies numbness or weakness. Related Data Home Medications Medication Instructions Recorded Confirmed amlodipine 2.5 mg tablet 5 mg PO DAILY 07/24/20 12/09/21 simvastatin 20 mg tablet 20 mg PO DAILY 07/24/20 12/09/21 pantoprazole 20 mg tablet,delayed 20 mg PO DAILY 12/09/21 12/09/21 release Allergies Allergy/AdvReac Type Severity Reaction Status Date / Time No Known Allergies Allergy Verified 12/09/21 17:06 Review of Systems Review of Systems: CONSTITUTIONAL: Denies fever, chills, or sweats. SKIN: Denies rash or itching. MUSCULOSKELETAL: See HPI NEUROLOGIC: Denies headache, numbness, dizziness, or weakness. PSYCHIATRIC: Denies anxiety or depression. [facility] Social History Social History Smoking status: Never smoker Alcohol intake: never Substance use: never Living arrangements: with family Gender identity (if verbalized by the patient): Male Exam Narrative: GENERAL: Well-appearing, well-nourished, and in no acute distress. MSK: Right lower extremity: Mild swelling to the posterior ankle. Significant tenderness along the Achilles tendon. No bruising. Positive Gil test. The ankle itself is without significant swelling or tenderness. No right foot tenderness or swelling. Neurovascularly intact distally. Left lower extremity: Benign. Normal range of motion. No edema. SKIN: Warm, dry, no rash. NEURO: Alert and oriented x3. No focal deficits. PSYCH: Normal mood and affect. Course Vital Signs Vital signs: Vital Signs Temperature 97.9 F 07/24/22 23:50 Pulse Rate 86 07/24/22 23:50 Respiratory Rate 18 07/24/22 23:50 Blood Pressure 143/75 H 07/24/22 23:50 Pulse Oximetry 97 07/24/22 23:50 Oxygen Delivery Room Air 07/24/22 23:50 Temperature 97.9 F 07/24/22 23:50 Pulse Rate 86 07/24/22 23:50 Respiratory Rate 18 07/24/22 23:50 Blood Pressure 143/75 H 07/24/22 23:50 Pulse Oximetry 97 07/24/22 23:50 Oxygen Delivery Room Air 07/24/22 23:50 Procedures Orthopedic Splinting/Casting Injury #1: Splinting/Casting Date: 07/25/22 Splinting/Casting Time: 02:51 Side: right Lower Extremity Injury Location: ankle Lower Extremity Immobilizer: posterior splint (short leg) Splint: customized in ED OCL: short leg Pre-Procedure Neuro Vascular Exam: normal Post-Procedure Neuro Vascular Exam: normal Other Orthopedic Equipment: crutches Medical Decision Making MDM Narrative Medical decision making narrative: This is a 37-year-old male who presents to the ED with chief complaint of a right ankle injury occurring while playing basketball today. Vitals are stable. Exam reveals a positive Gil test. Bedside ultrasound shows disruption of the Achilles ligament on the right, especially when compared with the left. Symptoms and exam are very much consistent with an Achilles rupture or tear. He was placed in a short leg posterior splint in slight plantarflexion. Ortho referral given. Supportive measures at home discussed. Return precautions given. Patient is understanding and agreeable with plan for discharge and follow-up with the orthopedic doc
[2022-07-25] MEDS: HYDROcodone/acetaminophen (*CRX) 7.5-325 MG TABLET 1 TAB PO (03:38)
== END 2022-07-25 03:47 | disposition home or self-care (01) ==
PROVIDERS: Emergency Provider Physician Assistant; PCP Emergency Medicine
DX: S86.011A Strain of right Achilles tendon, initial encounter (principal); X50.0XXA Overexertion from strenuous movement or load, initial encounter; Y93.67 Activity, basketball
CPT/HCPCS: 29515; 73600; 73620; 99283; A9270